=== PATIENT | female | born 1955 | race Caucasian/White ===

== ENCOUNTER 2021-02-16 08:44 | Day surgery (SDC) | payer OTHER ==
[~2021-02-16] VITALS: Ht 160 cm; Wt 94.7 kg
[~2021-02-16 08:44] MED LIST: AMOX250; ATOR10 PO; CIPR500 PO; CODGUAEL PO; GABA600 PO; HYDACE10B PO; Hydrocodone-Ap1 EA23 PO; METF500 PO; NAPR500 PO; PRAVASTATIN SOD10 MG PO; TRAM50 PO
--- NOTE | 2021-02-16 09:16 | NUR ---
02/16/21 0916 Minerva Zapata PT BOWEL PREP SUTABS
--- NOTE | 2021-02-16 11:03 | NUR ---
02/16/21 1103 Sonja Begum PREP PER
== END 2021-02-16 11:20 | disposition home or self-care (01) ==
LOC: ORSCSDS 08:44
PROVIDERS: Student in an Organized Health Care Education/Training Program
PROC: 0DBC8ZX Excision of Ileocecal Valve, Via Natural or Artificial Opening Endoscopic, Diagnostic (ICD-10-PCS; principal; 2021-02-16 10:00)
PROC: 0DBL8ZX Excision of Transverse Colon, Via Natural or Artificial Opening Endoscopic, Diagnostic (ICD-10-PCS; principal; 2021-02-16 10:00)
PROC: 0DBN8ZX Excision of Sigmoid Colon, Via Natural or Artificial Opening Endoscopic, Diagnostic (ICD-10-PCS; principal; 2021-02-16 10:00)
PROC: 0DBP8ZX Excision of Rectum, Via Natural or Artificial Opening Endoscopic, Diagnostic (ICD-10-PCS; principal; 2021-02-16 10:00)
DX: Z12.11 Encounter for screening for malignant neoplasm of colon (principal); D12.0 Benign neoplasm of cecum; D12.3 Benign neoplasm of transverse colon; D12.5 Benign neoplasm of sigmoid colon; D12.8 Benign neoplasm of rectum; K64.4 Residual hemorrhoidal skin tags; F17.210 Nicotine dependence, cigarettes, uncomplicated; E11.9 Type 2 diabetes mellitus without complications; Z79.84 Long term (current) use of oral hypoglycemic drugs; Z79.899 Other long term (current) drug therapy
CPT/HCPCS: 82947; 88305; J2704; J7120

== ENCOUNTER → 2022-08-31 | Outpatient (CLI) | payer OTHER | END | disposition home or self-care (01) | LOC: LAB SHORT 12:40 | DX: R35.0 Frequency of micturition (principal); R32 Unspecified urinary incontinence | CPT/HCPCS: 87077; 87086; 87186 ==

== ENCOUNTER → 2023-06-15 | Outpatient (CLI) | payer OTHER | END | disposition home or self-care (01) | LOC: LAB SHORT 16:05 → LAB 16:05 | DX: N39.0 Urinary tract infection, site not specified (principal) | CPT/HCPCS: 87077; 87086; 87186 ==

== ENCOUNTER → 2024-03-27 | Outpatient (CLI) | payer OTHER | END | disposition home or self-care (01) | LOC: LAB 15:46 → LAB SHORT 15:46 | DX: R30.0 Dysuria (principal); R35.0 Frequency of micturition | CPT/HCPCS: 87077; 87086; 87186 ==

== ENCOUNTER → 2024-08-20 | Outpatient (CLI) | payer OTHER | LOC: LAB SHORT 16:51 → LAB 16:51 | DX: N39.0 Urinary tract infection, site not specified (principal) | CPT/HCPCS: 87077; 87086; 87186 ==

== ENCOUNTER → 2024-10-07 | Outpatient (CLI) | payer OTHER ==
[2024-10-07 15:32] LABS: Source, Urine Clean Catch
[2024-10-07 16:29] LABS: Appearance, Urine Hazy (Clear); Bilirubin, Urine Neg (Neg); Blood, Urine Neg (Neg); Color, Urine Yellow (P-Yellow); Glucose Qualitative, Urine 4+ (Neg); Ketones, Urine Neg (Neg); Leukocyte Esterase, Urine Neg (Neg); Nitrite, Urine Pos (Neg); Protein, Urine 1+ (Neg); Urobilinogen, Urine NORM (Normal)
[2024-10-07 16:47] LABS: Bacteria Many /hpf; Red Blood Cells, Urine Not Seen /hpf (0-2); Squamous Epithelial Cells Few /hpf (Few); White Blood Cells, Urine 0-2 /hpf (0-5)
== END ==
LOC: LAB SHORT 11:00 → LAB 11:00
PROVIDERS: Registered Nurse
DX: N39.0 Urinary tract infection, site not specified (principal)
CPT/HCPCS: 81001; 87077; 87086; 87186

== ENCOUNTER → 2024-10-24 | Outpatient (CLI) | payer OTHER ==
[2024-10-25 17:43] LABS: COTININE, URN, SCREEN Negative ng/mL (Cutoff 100)
== END ==
LOC: LAB 11:08 → LAB SHORT 11:08
PROVIDERS: Orthopaedic Surgery
DX: Z01.818 Encounter for other preprocedural examination (principal); M17.11 Unilateral primary osteoarthritis, right knee

== ENCOUNTER 2024-11-25 10:30 | Day surgery (SDC) | payer OTHER ==
[~2024-11-25] VITALS: Ht 160 cm; Wt 92.9 kg
[2024-11-25] VITALS (9 sets, daily range): BP systolic 93–149; BP diastolic 47–76
[~2024-11-25 10:30] MED LIST changes: +GLIP10 PO
[2024-11-25] MEDS ORDERED: CeFAZolin Sodium 2,000 MG in NS 100 ML IV SCH ×2 (11:10→21:00)
[2024-11-25] MEDS ORDERED: Lactated Ringer's 1,000 ML IV SCH ×2 (11:10→11:30)
[2024-11-25] MEDS ORDERED: Acetaminophen 500 MG Tab PO SCH ×2 (11:10→16:00)
[2024-11-25] MEDS ORDERED: Chlorhexidine Mouth Care 15 ML UDC MT SCH (11:10)
[2024-11-25] MEDS ORDERED: Ropivacaine 0.5% HCl/Pf 123.125 MG,EPINEPHrine HCL 0.25 MG,Ketorolac Tromethamine 15 MG... INFIL SCH (11:10)
[2024-11-25] MEDS ORDERED: OxyCODONE HCL 10 MG TABCR PO SCH (11:10)
[2024-11-25] MEDS ORDERED: DiphenhydrAMINE HCL 25 MG Cap PO PRN (11:10)
[2024-11-25] MEDS ORDERED: Ondansetron HCl 2 MG / ML 2ML Vial IV PRN ×2 (11:15→14:55)
[2024-11-25] MEDS ORDERED: Metoclopramide HCl 5MG / ML 2ML Vial IV PRN (11:15)
[2024-11-25] MEDS ORDERED: Magnesium Hydroxide Conc 10 ML UDC PO PRN (11:15)
[2024-11-25] MEDS ORDERED: OxyCODONE HCL 5 MG TAB PO PRN ×2 (11:20)
[2024-11-25] MEDS ORDERED: Promethazine HCl 25 MG Tab PO PRN (11:20)
[2024-11-25] MEDS ORDERED: HYDROmorphone HCl/Pf 1MG SYR IV PRN ×3 (11:20→14:55)
[2024-11-25] MEDS ORDERED: Tranexamic Acid 100 ML IV SCH (11:23)
--- NOTE | 2024-11-25 11:27 | NUR ---
Ambulatory in Day SurgeryPre-Op teaching done. Pt verbalizes understanding. History, Chart, Medications and Allergies reviewed before start of procedure.Patient confirms NPO status and agrees with scheduled surgery. Patient reports completing Chlorhexadine shower X2 prior to admission to hospital.
[2024-11-25] MEDS ORDERED: Bisacodyl 10 MG Supp PR PRN (11:30)
[2024-11-25] MEDS ORDERED: Insulin Regular 100 UNIT/ML 10ML Vial SC SCH (11:30)
[2024-11-25] MEDS ORDERED: CeFAZolin Sodium 2,000 MG VIAL ONE (11:31)
[2024-11-25] MEDS ORDERED: FentaNYL Citrate 50 MCG/ML 2 ML Injection ONE (12:05)
[2024-11-25] MEDS ORDERED: Midazolam HCl 1MG / ML 2ML Vial ONE ×2 (12:05→13:33)
[2024-11-25] MEDS ORDERED: Ondansetron HCl 2 MG / ML 2ML Vial ONE (12:41)
[2024-11-25] MEDS ORDERED: propofoL 60 ML IV ONE (12:41)
[2024-11-25] MEDS ORDERED: Lidocaine HCl 2% 20 ML MDV ONE (12:41)
--- NOTE | 2024-11-25 13:36 | NUR ---
11/25/24 [address] SPINAL BLOCK COMPLETED BY DR. ARTHUR UPON ENTRY TO OR.
[2024-11-25] MEDS ORDERED: ePHEDrine Sulfate 50 MG/ML 1ML Injection ONE (13:37)
[2024-11-25] MEDS ORDERED: Dexamethasone Sodium Phosphate 4 MG/ML 5ML VIAL IV PRN (14:50)
[2024-11-25] MEDS ORDERED: FentaNYL Citrate 50 MCG/ML 2 ML Injection IV PRN ×2 (14:50→14:55)
[2024-11-25] MEDS ORDERED: ePHEDrine Sulfate 50 MG/ML 1ML Injection IV PRN (14:55)
[2024-11-25] MEDS ORDERED: Scopolamine Hydrobromide Patch TOP SCH (14:55)
--- NOTE | 2024-11-25 15:26 | NUR ---
ARRIVAL TO UNIT PT ARRIVED TO UNIT FROM PACU AT APPROXIMATELY 1515. PT ALERT AND ABLE TO FOLLOW COMMANDS. COMMUNICATES NEED EFFECTIVELY. S/P R TKA WITH SPINAL. DECREASED SENSATION TO LOWER EXTREMITES. IS ABLE TO MOVE BLE SOME. DENIES PAIN. PRINEO DRESSING TO RIGHT KNEE C/D/I. DENIES N/V. SNACKS WITHIN REACH. AT BEDSIDE. CALL LIGHT IN REACH.
--- NOTE | 2024-11-25 16:58 | NUR ---
REPORT GIVEN TO SHEYLA LONG TO ASSUME CARE
[2024-11-25] MEDS ORDERED: GlipiZIDE 10 MG Tab PO SCH (17:00)
[2024-11-25] MEDS ORDERED: MetFORMIN HCl 500 mg PO SCH (17:00)
--- NOTE | 2024-11-25 17:56 | NUR ---
SHIFT SUMMARY POD X0 FOR R TKA. A/0X4. PT AWAKE RESTING IN BED WITH AT BEDSIDE. SHE IS ABLE TO WIGGLE TOES AND HAS REGAINED SOME SENSATION. PRINEO AND TEGADERM DRESSING IN PLACE AT RIGHT KNEE THAT IS C/D/I. VSS. PPP. CAP REFILL >3 SECONDS. IV PATENT AT L HAND. PT IS UTALIZING POLAR PACK WITH GOOD RESULTS. PAIN IS MANAGED PER EMAR.
[2024-11-25] MEDS ORDERED: Ketorolac Tromethamine 15mg Vial IV SCH (18:00)
--- NOTE | 2024-11-25 18:33 | NUR ---
DISCHARGE PT ABLE TO AMBULATE WELL AND VOID. ALL INSTRUCTIONS GONE OVER WITH PATIENT AND SPOUSE. ALL BELONGINGS WITH PATIENT. ESCORTED OUT VIA WHEELCHAIR.
[2024-11-25] MEDS ORDERED: Docusate Sodium 100 MG Cap PO SCH (21:00)
== END 2024-11-25 18:31 | disposition home or self-care (01) ==
LOC: ORSCMMR 10:30 → ORD 11:30 → ORSCMMR 15:06 → SURS 15:06 → ORSCMMR 18:31
PROVIDERS: Orthopaedic Surgery
PROC: 0SRC0JA Replacement of Right Knee Joint with Synthetic Substitute, Uncemented, Open Approach (ICD-10-PCS; principal; 2024-11-25 11:30)
DX: M17.11 Unilateral primary osteoarthritis, right knee (principal); E11.9 Type 2 diabetes mellitus without complications; F17.210 Nicotine dependence, cigarettes, uncomplicated; E78.5 Hyperlipidemia, unspecified; Z79.84 Long term (current) use of oral hypoglycemic drugs; Z79.899 Other long term (current) drug therapy; E66.9 Obesity, unspecified; Z68.36 Body mass index [BMI] 36.0-36.9, adult
CPT/HCPCS: 73560-RT; 82947; A9270; C1713; C1776; C1887; J0171; J0690; J0735; J1885; J2250; J2405; J2704; J2795; J3010; J7120

== ENCOUNTER 2024-12-24 21:19 | Observation (INO) | payer OTHER ==
[~2024-12-24] VITALS: Ht 160 cm; Wt 90.7 kg
[2024-12-25] MEDS ORDERED: Morphine Sulfate 4 MG/1 ML Injection IM ONE (01:35)
[2024-12-25] MEDS ORDERED: Morphine Sulfate 4 MG/1 ML Injection IV ONE (04:10)
[2024-12-25] MEDS ORDERED: Ondansetron HCl 2 MG / ML 2ML Vial IV PRN (04:15)
[2024-12-25] MEDS ORDERED: NS 1,000 ML IV ONE (04:15)
[2024-12-25] MEDS ORDERED: FentaNYL Citrate 50 MCG/ML 2 ML Injection IV PRN (04:15)
[2024-12-25 05:36] LABS: BASOPHILS ABSOLUTE AUTO 0.05 K/mm3 (0.00-0.23); BASOPHILS PERCENT AUTO 0 % (0-2); EOSINOPHILS PERCENT AUTO 1 % (0-6); Hematocrit 39.5 % (33.0-51.0); Hemoglobin 12.5 g/dL (11.5-16.0); IMMATURE GRAN ABSOLUTE AUTO 0.03 K/mm3 (0.00-0.10); IMMATURE GRAN PERCENT AUTO 0 % (0-1); LYMPHOCYTES ABSOLUTE AUTO 2.42 K/mm3 (0.84-5.20); LYMPHOCYTES PERCENT AUTO 21 % (21-46); MONOCYTES PERCENT AUTO 9 % (4-13); Mean Corpuscular HGB 28.3 pg (26.0-34.0); Mean Corpuscular HGB Conc 31.6 g/dL (31.5-36.5); Mean Corpuscular Volume 89 fL (80-100); Mean Platelet Volume 10.2 fL (9.1-12.4); NEUTROPHILS ABSOLUTE AUTO 7.79 K/mm3 (1.96-9.15); NEUTROPHILS PERCENT AUTO 68 % (41-73); Platelet Count 306 K/mm3 (150-400); RDW Coefficient Variation 14.8 % (11.7-14.2); RDW Standard Deviation 48.3 fL (35.1-46.3); Red Blood Cell Count 4.42 M/mm3 (3.80-5.20); White Blood Cell Count 11.39 K/mm3 (4.00-11.30)
[2024-12-25 06:02] LABS: International Normalized Ratio 1.05; Prothrombin Time Results 11.2 Sec (9.7-11.5)
[2024-12-25 06:09] LABS: Albumin, Blood 3.4 g/dL (3.4-5.0); Albumin/Globulin Ratio 0.9 (0.8-1.8); Bilirubin, Total 0.3 mg/dL (0.1-1.0); Creatinine, Blood 0.45 mg/dL (0.40-1.00); Globulin, Blood 3.6 g/dL (2.2-4.0); Potassium, Blood 3.3 mmol/L (3.5-5.5)
[2024-12-25] MEDS ORDERED: Insulin Human Lispro 100 Units/ML 3ML Syringe SC SCH (07:30)
[2024-12-25] MEDS ORDERED: Norco 5-325 Ta1 EACH PO (09:41)
[2024-12-25 10:15] VITALS: BP 104/93
== END 2024-12-25 23:00 | disposition home or self-care (01) ==
LOC: ER 21:19 → ERHOLD 21:20 → ER 12-25 04:58 → ERHOLD 12-25 04:58
PROVIDERS: Student in an Organized Health Care Education/Training Program; ADMIT Internal Medicine
DX: S72.421A Displaced fracture of lateral condyle of right femur, initial encounter for closed fracture (principal); M97.11XA Periprosthetic fracture around internal prosthetic right knee joint, initial encounter; S82.001A Unspecified fracture of right patella, initial encounter for closed fracture; W01.0XXA Fall on same level from slipping, tripping and stumbling without subsequent striking against object, initial encounter; E11.9 Type 2 diabetes mellitus without complications; F17.210 Nicotine dependence, cigarettes, uncomplicated; Z79.84 Long term (current) use of oral hypoglycemic drugs; Z88.0 Allergy status to penicillin
CPT/HCPCS: 73562-RT; 73700; 80053; 82947; 83880; 85025; 85610; 96372; 96374; 96375; 99285-25; A9270; G0378; J2270; J3010; J7030

== ENCOUNTER → 2025-05-15 | Outpatient (CLI) | payer OTHER ==
[~2025-05-15] MED LIST changes: +Norco 5-325 Ta1 EACH PO
[2025-05-15 17:58] LABS: Bilirubin, Urine Neg (Neg); Color, Urine Yellow (P-Yellow); Glucose Qualitative, Urine Neg (Neg); Ketones, Urine Neg (Neg); Leukocyte Esterase, Urine Neg (Neg); Protein, Urine 1+ (Neg); Specific Gravity, Urine 1.015 (1.003-1.022); Urobilinogen, Urine NORM (Normal)
[2025-05-15 18:10] LABS: Red Blood Cells, Urine 0-2 /hpf (0-2); White Blood Cells, Urine 0-2 /hpf (0-5)
== END | disposition home or self-care (01) ==
LOC: LAB SHORT 17:17 → LAB 17:17
PROVIDERS: Nurse Practitioner Family
DX: R30.0 Dysuria (principal)
CPT/HCPCS: 81001; 87086

== ENCOUNTER → 2025-05-26 | Outpatient (CLI) | payer OTHER ==
[2025-05-26 17:40] LABS: Source, Urine Urostomy Bag
[2025-05-26 18:24] LABS: Bilirubin, Urine Neg (Neg); Color, Urine Yellow (P-Yellow); Glucose Qualitative, Urine Neg (Neg); Ketones, Urine Neg (Neg); Leukocyte Esterase, Urine Neg (Neg); Protein, Urine Neg (Neg); Specific Gravity, Urine 1.010 (1.003-1.022); Urobilinogen, Urine NORM (Normal)
== END ==
LOC: LAB SHORT 17:31 → LAB 17:31
PROVIDERS: Nurse Practitioner Family
DX: E78.5 Hyperlipidemia, unspecified (principal)
CPT/HCPCS: 81003